=== PATIENT | female | born 1960 | race Caucasian/White ===

== ENCOUNTER 2022-06-15 02:15 | Emergency (ER) | payer OTHER ==
[2022-06-15 02:23] VITALS: BP 148/68; PULSE 66; RESP 14; TEMP 97.8; BMI 20.3
[2022-06-15] MEDS ORDERED: TETRACAINE 0.5% OPHTH SOLN 2 ML BOTTLE ONE (02:45)
[2022-06-15] MEDS ORDERED: FLUORESCEIN NA 1 EA STRIP ONE (02:45)
== END 2022-06-15 03:03 | disposition home or self-care (01) ==
LOC: FER 02:15
DX: H10.31 Unspecified acute conjunctivitis, right eye (principal)
CPT/HCPCS: 99283-25